=== PATIENT | male | born 1965 | race African-American/Black ===

== ENCOUNTER 2017-10-01 10:48 | Emergency (ER) | payer MEDICAID, OTHER ==
[~2017-10-01] VITALS: Ht 175.3 cm; Wt 70.0 kg
[2017-10-01 11:49] VITALS: BP 117/74
[2017-10-01] MEDS ORDERED: ALBUTEROL (0.083%) 2.5MG/3ML NEB HHN STA (13:31)
[2017-10-01] MEDS ORDERED: IPRATROPIUM BROMIDE (0.02%) 0.5MG/2.5ML NEB HHN STA (13:31)
== END 2017-10-01 15:26 | disposition home or self-care (01) ==
LOC: ER 13:27
DX: J18.9 Pneumonia, unspecified organism (principal); J40 Bronchitis, not specified as acute or chronic; F17.200 Nicotine dependence, unspecified, uncomplicated; I10 Essential (primary) hypertension; N40.0 Benign prostatic hyperplasia without lower urinary tract symptoms; Z88.0 Allergy status to penicillin
CPT/HCPCS: 71045; 94640; 99283; J7611

== ENCOUNTER 2017-10-14 15:34 | Emergency (ER) | payer MEDICAID ==
[~2017-10-14] VITALS: Ht 175.3 cm; Wt 68.0 kg
[2017-10-14] MEDS ORDERED: ALBUTEROL (0.083%) 2.5MG/3ML NEB HHN STA (19:50)
[2017-10-14] MEDS ORDERED: KETOROLAC 60MG/2ML VIAL IM ONE (20:00)
[2017-10-14 20:45] VITALS: BP 118/79
== END 2017-10-14 20:47 | disposition home or self-care (01) ==
LOC: ER 16:43
DX: B34.9 Viral infection, unspecified (principal); M54.30 Sciatica, unspecified side; J43.9 Emphysema, unspecified; Z88.0 Allergy status to penicillin; Z88.5 Allergy status to narcotic agent; I10 Essential (primary) hypertension
CPT/HCPCS: 71045; 94640; 96372; 99283; J1885; J7611

== ENCOUNTER 2018-01-28 09:36 | Emergency (ER) | payer OTHER, MEDICAID ==
[~2018-01-28] VITALS: Ht 177.8 cm; Wt 69.0 kg
[2018-01-28] MEDS ORDERED: ACETAMINOPHEN WITH CODEINE 300/30MG TABLET PO ONE (10:30)
[2018-01-28] MEDS ORDERED: METHOCARBAMOL 500MG TABLET PO ONE (10:30)
[2018-01-28 15:02] VITALS: BP 119/90
== END 2018-01-28 16:44 | disposition home or self-care (01) ==
LOC: ER 10:18
DX: S43.51XA Sprain of right acromioclavicular joint, initial encounter (principal); S00.83XA Contusion of other part of head, initial encounter; S00.03XA Contusion of scalp, initial encounter; S20.211A Contusion of right front wall of thorax, initial encounter; Z88.5 Allergy status to narcotic agent; Z88.0 Allergy status to penicillin; Y09 Assault by unspecified means; Y93.89 Activity, other specified; Y92.89 Other specified places as the place of occurrence of the external cause; Y99.8 Other external cause status
CPT/HCPCS: 70450; 70486; 71101; 73030; 99284